=== PATIENT | male | born 1990 | race Caucasian/White ===

== ENCOUNTER 2016-05-08 21:11 | Emergency (ER) | payer SELFPAY ==
[~2016-05-08] VITALS: Ht 182.9 cm; Wt 88.6 kg
[~2016-05-08 21:11] MED LIST: GLUCTAB7 PO; IBUP-103 PO
[2016-05-08 21:14] VITALS: TEMP 36.8; Ht 182.9 cm; Wt 88.6 kg
[2016-05-08 22:17] LABS: BASO % 0.3 %; BASO ABS # 0.02 K/uL (0-0.2); COMPLETE YES; EOS % 1.2 %; HEMATOCRIT 42.3 % (42-52); IG% 0.1 %; LYMPH % 36.3 %; LYMPH ABS # 2.75 K/uL (1.2-3.4); MEAN CELL VOLUME 87.9 fL (80-100); MEAN CORPUSCULAR HEMOGLOBIN 32.4 pg (25-34); MEAN CORPUSCULAR HGB CONC 36.9 g/dl (32-36); MEAN PLATELET VOLUME 10.4 fL (7.4-10.4); NEUT % 55.1 %; PLATELET COUNT 220 K/uL (130-400); RED BLOOD COUNT 4.81 M/uL (4.7-6.1); WHITE BLOOD COUNT 7.57 K/uL (4.8-10.8)
[2016-05-08 22:31] LABS: ALT/SGPT 40 U/L (12-78); BLOOD UREA NITROGEN 16 mg/dl (7-18); BUN/CREATININE RATIO 16.2 (10-20); C-REACTIVE PROTEIN < 0.29 mg/dl (0-0.29); CALCIUM 9.3 mg/dl (8.5-10.1); CARBON DIOXIDE 25 mmol/L (21-32); CHLORIDE 104 mmol/L (98-107); CREATININE 0.98 mg/dl (0.60-1.40); GLUCOSE 94 mg/dl (70-99); POTASSIUM 4.2 mmol/L (3.5-5.1); SODIUM 139 mmol/L (136-145)
[2016-05-08 22:40] LABS: ALB/GLOB RATIO 1.4 (0.9-2); ALKALINE PHOSPHATASE 100 U/L (45-117); AST/SGOT 25 U/L (15-37); THYROID STIMULATING HORMONE 0.592 uIu/ml (0.300-4.500)
[2016-05-08 22:49] LABS: URINE APPEARANCE CLEAR (CLEAR); URINE BILIRUBIN NEG (NEG); URINE COLOR YELLOW; URINE NITRITE NEG (NEG); URINE SPECIFIC GRAVITY 1.002 (1.000-1.030); UROBILINOGEN NEG (NEG); ZZUR CULT IF INDIC CLEAN CATCH NO
[2016-05-08 22:58] LABS: MANUAL MICROSCOPIC REQUIRED? NO; REVIEW REQ? NO
[2016-05-08 23:08] LABS: BENZODIAZEPINE, URINE NEG (NEG); COCAINE,URINE NEG (NEG); PHENCYCLIDINE, URINE NEG (NEG)
[2016-05-08 23:14] LABS: LYME DISEASE AB IGG NEG (NEG); LYME DISEASE AB IGM NEG (NEG)
[2016-05-09 00:43] VITALS: BP 127/80; PULSE 68; O2SAT 97
--- NOTE | 2016-05-09 04:25 | EMERGENCY ROOM VISIT NOTE ---
History First contact with patient: 21:31 Chief Complaint: OTHER COMPLAINT Stated Complaint: ACHEY JOINTS, FATIGUE, TIREDNESS, PAIN IN BACK History of Present Illness The patient is a 25 year old male who presents to the Emergency Room with complaints of generalized malaise, fatigue, and body aches for the past few months. 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 He reports he is concerned for Lyme disease as he pulled off several ticks from his body over the past few months. The patient also reports a past history of chlamydia, and he is concerned he may have a reactive arthritis. He has not had fever, chills, rash, or joint swelling/edema. The patient is otherwise healthy and also participates in mixed martial arts. He rates his overall discomfort a 5/10. He has not taken anything [id number] for his symptoms. Review of Systems More than 10 systems were reviewed and otherwise negative with the exception of history of present illness. Past Medical/Surgical History Medical Problems: (1) No Known Active Medical Problems Family History No pertinent family history Social History Smoking Status: Never Smoker Marital Status: single Occupation Status: employed Current/Historical Medications No Active Prescriptions or Reported Meds Allergies Coded Allergies: No Known Allergies (Unverified , 05/08/16) Physical Exam Vital Signs Date Time Temp Pulse Resp B/P Pulse Ox O2 Delivery O2 Flow Rate FiO2 05/09/16 00:43 68 18 127/80 97 05/09/16 00:05 74 18 128/82 99 Room Air 05/08/16 22:47 73 18 121/88 98 Room Air 05/08/16 21:22 140/82 05/08/16 21:14 36.8 96 18 139/101 98 Room Air Physical Exam VITALS: Vitals are noted on the nurse's note and reviewed by myself. Vital signs stable. GENERAL: Well-developed, well-nourished, white male, who is in no acute distress and resting comfortably. Patient is cooperative with the examination. HEAD: Normocephalic atraumatic. NECK: Supple without nuchal rigidity. No lymphadenopathy. No thyromegaly. Cervical spine is nontender. HEART: Regular rate and rhythm without murmurs gallops or rubs. LUNGS: Clear to auscultation bilaterally without wheezes, rales or rhonchi. No retractions or accessory muscle use. ABDOMEN: Positive normal bowel sounds x 4. Soft, nontender, without masses or organomegaly. No guarding or rebound tenderness. MUSCULOSKELETAL: No muscle atrophy, erythema, or edema noted. Full range of motion without joint tenderness in all extremities. No tenderness to palpation. Normal gait. Strength 5/5 throughout. NEURO: Patient was alert and oriented to person place and time. CN II through XII grossly intact. Deep tendon reflexes 2+ throughout. No focal neurological deficits SKIN: The skin was without rashes, erythema, edema, or bruising. Capillary reflex less than 2 seconds. Medical Decision & Procedures Laboratory Results 05/08/16 22:10 Red Blood Count 4.81, Mean Corpuscular Volume 87.9, Mean Corpuscular Hemoglobin 32.4, Mean Corpuscular Hemoglobin Concent 36.9, Mean Platelet Volume 10.4, Neutrophils (%) (Auto) 55.1, Lymphocytes (%) (Auto) 36.3, Monocytes (%) (Auto) 7.0, Eosinophils (%) (Auto) 1.2, Basophils (%) (Auto) 0.3, Neutrophils # (Auto) 4.17, Lymphocytes # (Auto) 2.75, Monocytes # (Auto) 0.53, Eosinophils # (Auto) 0.09, Basophils # (Auto) 0.02 05/08/16 22:10 Test 05/08/16 22:10 05/08/16 22:30 White Blood Count 7.57 K/uL (4.8-10.8) Red Blood Count 4.81 M/uL (4.7-6.1) Hemoglobin 15.6 g/dL (14.0-18.0) Hematocrit 42.3 % (42-52) Mean Corpuscular Volume 87.9 fL (80-100) Mean Corpuscular Hemoglobin 32.4 pg (25-34) Mean Corpuscular Hemoglobin Concent 36.9 g/dl (32-36) Platelet Count 220 K/uL (130-400) Mean Platelet Volume 10.4 fL (7.4-10.4) Neutrophils (%) (Auto) 55.1 % Lymphocytes (%) (Auto) 36.3 % Monocytes (%) (Auto) 7.0 % Eosinophils (%) (Auto) 1.2 % Basophils (%) (Auto) 0.3 % Neutrophils # (Auto) 4.17 K/uL (1.4-6.5) Lymphocytes # (Auto) 2.75 K/uL (1.2-3.4) Monocytes # (Auto) 0.53 K/uL (0.11-0.59) Eosinophils # (Auto) 0.09 K/uL (0-0.5) Basophils # (Auto) 0.02 K/uL (0-0.2) RDW Standard Deviation 39.7 fL (36.4-46.3) RDW Coefficient of Variation 12.4 % (11.5-14.5) Immature Granulocyte % (Auto) 0.1 % Immature Granulocyte # (Auto) 0.01 K/uL (0.00-0.02) Erythrocyte Sedimentation Rate 2 mm/hr (0-14) Anion Gap 10.0 mmol/L (3-11) Est Creatinine Clear Calc Drug Dose 124.3 ml/min Estimated GFR () 122.0 Estimated GFR (Non- 105.2 BUN/Creatinine Ratio 16.2 (10-20) Calcium Level 9.3 mg/dl (8.5-10.1) Magnesium Level 2.0 mg/dl (1.8-2.4) Total Bilirubin 0.4 mg/dl (0.2-1) Aspartate Amino Transf (AST/SGOT) 25 U/L (15-37) Alanine Aminotransferase (ALT/SGPT) 40 U/L (12-78) Alkaline Phosphatase 100 U/L (45-117) Total Creatine Kinase 349 U/L (39-308) C-Reactive Protein < 0.29 mg/dl (0-0.29) Total Protein 7.1 gm/dl (6.4-8.2) Albumin 4.1 gm/dl (3.4-5.0) Globulin 3.0 gm/dl (2.5-4.0) Albumin/Globulin Ratio 1.4 (0.9-2) Lipase 138 U/L (73-393) Thyroid Stimulating Hormone (TSH) 0.592 uIu/ml (0.300-4.500) Lyme Disease IgG Antibody NEG (NEG) Lyme Disease IgM Antibody NEG (NEG) Monoscreen NEG (NEG) Urine Color YELLOW Urine Appearance CLEAR (CLEAR) Urine pH 7.0 (4.5-7.5) Urine Specific [place] 1.002 (1.000-1.030) Urine Protein NEG (NEG) Urine Glucose (UA) NEG (NEG) Urine Ketones NEG (NEG) Urine Occult Blood NEG (NEG) Urine Nitrite NEG (NEG) Urine Bilirubin NEG (NEG) Urine Urobilinogen NEG (NEG) Urine Leukocyte Esterase NEG (NEG) Urine Opiates Screen NEG (NEG) Urine Methadone, Qualitative NEG (NEG) Urine Barbiturates NEG (NEG) Urine Phencyclidine (PCP) Level NEG (NEG) Ur Amphetamine/Methamphetamine NEG (NEG) MDMA (Ecstasy) Screen NEG (NEG) Urine Benzodiazepines Screen NEG (NEG) Urine Cocaine Metabolite NEG (NEG) Urine Marijuana (THC) NEG (NEG) ED Course Physical exam and history were performed. Nursing notes and EMR were reviewed. Patient appears to have generalized malaise and fatigue for the past several months. He is currently concerned about Lyme disease as well as a possible reactive arthritis secondary to chlamydial infection. On examination the patient appears well and certainly not toxic. IV access was established and labs were obtained. The patient's blood work is as above and was reviewed. He does not have a significantly elevated white blood cell count, anemia, bandemia, or gross electrolyte imbalance. His transaminases are nondiagnostic. TSH was within normal limits. [place] and Lyme were both negative. CK was slightly, but not significantly elevated to suggest rhabdomyolysis. His urine was clean of both infection and drugs of abuse. Inflammatory markers are not significant elevated. The patient and I had a lengthy discussion regarding his symptoms. The patient really needs to follow with a primary care physician for ongoing care and evaluation. He states that he does not have insurance or a PCP. I had case management provide him resources locally to help him establish appropriate care. The patient does not appear to have an imminently life-threatening condition, as his evaluation today is fairly unremarkable. He has had symptoms for several months, and this could be secondary to his physical activities. The patient will be asked use [id number] analgesics. He was otherwise invited back to the ER with any new, worsening, or concerning symptoms. He was discharged home under the care of his sister and voiced understanding of this plan. The chart was completed utilizing [employer]. Grammatical errors, random word insertions, pronoun errors, and incomplete sentences are an occasional consequence of this system due to software limitations, ambient noise, and hardware issues. Any formal questions or concerns about the content, text, or information contained within the body of this dictation should be directly addressed to the provider for clarification. . Medical Decision Differential diagnosis: Etiologies such as metabolic, infection, hypo/hyperglycemia, electrolyte abnormalities, cardiac sources, intracerebral event, toxicologic, neurologic, as well as others were entertained. Impression Primary Impression: Malaise and fatigue Departure Information Prescriptions No Active Prescriptions or Reported Meds Referrals No Doctor, Assigned (PCP) Patient Instructions [facility]
== END 2016-05-09 00:43 | disposition home or self-care (01) ==
LOC: C.EDB 21:13 → C.EDA 05-09 00:43
DX: R53.81 Other malaise (principal); R53.83 Other fatigue